=== PATIENT | male | born 1970 | race Caucasian/White ===

== ENCOUNTER 2016-10-22 11:41 | Emergency (ER) | payer BC ==
[2016-10-22 11:46] VITALS: BP 139/94
--- NOTE | 2016-10-22 12:26 | UC ---
Skin Complaint HPI - HPI Summary HPI Summary: Sustained 7 or 8 insects stings after stepping on a nest, thinks they were ground wasps. Most of them on ankles and legs, a couple on his arms. The worst stings are on the ankles, getting more red, warm, and itchy through the day. Has hx of severe large local reaction in his LUE that needed steroids to help with swelling and pain. - History of Current Complaint Chief Complaint: UCAllergicReaction Time Seen by Provider: 10/22/16 12:12 Stated Complaint: WASP STINGS Hx Obtained From: Patient Onset/Duration: Sudden Onset Skin Exposure Onset/Duration: Days Ago Timing: Constant Onset Severity: Mild Current Severity: Moderate Location: Discrete Character: Swelling, Pruritus, Pain, Redness Aggravating: Touch Alleviating: Antihistamines Associated Signs & Symptoms: Negative: Weakness, Pallor, Shivering, Fever, Wheezing, Drainage, Red Streaks Related History: Insect Bite/Sting - Allergy/Home Medications Allergies/Adverse Reactions: Allergies Allergy/AdvReac Type Severity Reaction Status Date / Time No Known Allergies Allergy Verified 08/06/15 10:47 Review of Systems Constitutional: Negative Skin: Other - many red areas on legs, arms Eyes: Negative ENT: Negative Respiratory: Negative Cardiovascular: Negative Gastrointestinal: Negative Genitourinary: Negative Motor: Negative Neurovascular: Negative Musculoskeletal: Negative Neurological: Negative Psychological: Negative All Other Systems Reviewed And Are Negative: Yes PMH/Surg Hx/FS Hx/Imm Hx Previously Healthy: Yes - Surgical History Surgical History: Yes Surgery Procedure, Year, and Place: shoulder repair - Family History Known Family History: Positive: Other - NONCONTRIBUTORY - Social History Alcohol Use: None Substance Use Type: None Smoking Status (MU): Never Smoked Tobacco Have You Smoked in the Last Year: No Physical Exam Triage Information Reviewed: Yes Appearance: Well-Appearing, No Pain Distress, Well-Nourished Vital Signs: Initial Vital Signs Temp 97.8 F 10/22/16 11:43 Pulse 64 10/22/16 11:43 Resp 20 10/22/16 11:43 BP 139/94 10/22/16 11:43 Pulse Ox 99 10/22/16 11:43 Vital Signs Reviewed: Yes Eye Exam: Normal Eyes: Positive: Conjunctiva Clear ENT Exam: Normal ENT: Positive: Normal ENT inspection, Hearing grossly normal, Pharynx normal, TMs normal Dental Exam: Normal Neck exam: Normal Respiratory Exam: Normal Respiratory: Positive: Chest non-tender, Lungs clear, Normal breath sounds, No respiratory distress, No accessory muscle use Cardiovascular Exam: Normal Cardiovascular: Positive: RRR, No Murmur Musculoskeletal Exam: Normal Neurological Exam: Normal Neurological: Positive: Alert Psychological Exam: Normal Skin Exam: Other - multiple separate 5-10cm raised erythematous wheals on legs/ ankles Course/Dx - Diagnoses Provider Diagnoses: multiple insect stings, local reactions. elevated blood pressure due to discomfort Discharge - Discharge Plan Condition: Stable Disposition: HOME Prescriptions: predniSONE TAB* [Deltasone TAB*] 50 mg PO DAILY #5 tab Patient Education Materials: Insect Bite or Sting (ED) Referrals: Joelle Beckford MD [Primary Care Provider] - Additional Instructions: You can take 25-50mg diphenhydramine up to 4 times per day as needed for symptoms. Come back if you have markedly increasing pain, swelling, redness, or if you suspect a problem. I expect the prednisone to stop your stings from growing and the itching should be much improved within 2 days.
== END 2016-10-22 12:24 | disposition home or self-care (01) ==
LOC: UCEAST 11:41
DX: T63.461A Toxic effect of venom of wasps, accidental (unintentional), initial encounter (principal); Y92.9 Unspecified place or not applicable; R03.0 Elevated blood-pressure reading, without diagnosis of hypertension
CPT/HCPCS: 99212; G0463

== ENCOUNTER 2017-10-17 14:14 | Emergency (ER) | payer BC ==
[2017-10-17] MEDS ORDERED: EPINEPHRINE 1 MG/ML 1 ML VIAL ONE (14:17)
[2017-10-17] MEDS ORDERED: methylPREDNISolone 125 MG* 2 ML VIAL ONE (14:23)
[2017-10-17] MEDS ORDERED: Famotidine IV* 10 MG/ML 2 ML (20 mg) ONE (14:23)
[2017-10-17] MEDS ORDERED: diPHENhydraMINE IV* 50 MG/ML 1 ml VIAL (BENADRYL) ONE (14:23)
[2017-10-17] MEDS ORDERED: Ondansetron INJ* 2 MG/ML VIAL ONE (14:33)
[2017-10-17] MEDS ORDERED: Ondansetron INJ* 2 MG/ML VIAL IV ONE (14:55)
[2017-10-17] MEDS ORDERED: NS 0.9% 1000 ML*IV.FLUID IV ONE (14:55)
--- NOTE | 2017-10-17 16:53 | ED ---
Nini Burns Gabriel, scribed for Higinio Zavaleta MD on 10/17/17 at 1428 . Allergic Reaction/Systemic - HPI Summary HPI Summary: This patient is a 47 year old M presenting to [facility] accompanied by his s/p wasp sting that occurred 30 minutes [employer] in his backyard. The patient was rushed In from triage after he passed out in the lobby. The pt states he was stung by a yellow jacket on his face and has had adverse reactions to wasp stings in the past. He took 25mg of Benadryl after the bite. Patient reports dizziness, nausea, ringing in his ears, hives, and diffuse redness. Patient denies tongue swelling, trouble swallowing, vomiting, CP, and incontinence. - History of Current Complaint Chief Complaint: EDAllergicReaction Hx Obtained From: Patient, Family/Parachute Folder - Onset/Duration: Sudden Onset, Started minutes ago - 30 Timing: Constant, Lasting Minutes Severity Initially: Moderate Severity Currently: Severe Pain Intensity: 0 Pain Scale Used: 0-10 Numeric Location: Diffuse Character: Hives Associated Signs And Symptoms: Positive: Nausea. Negative: Throat Tightening, Vomiting - Allergies/Home Medications Allergies/Adverse Reactions: Allergies Allergy/AdvReac Type Severity Reaction Status Date / Time Yellow Jacket bug Allergy Severe Anaphylatic Uncoded 10/17/17 15:14 Shock PMH/Surg Hx/FS Hx/Imm Hx Endocrine/Hematology History: Denies: Hx Diabetes, Hx Thyroid Disease Cardiovascular History: Denies: Hx Hypertension Respiratory History: Denies: Hx Asthma, Hx Chronic Obstructive Pulmonary Disease (COPD) GI History: Denies: Hx Ulcer Neurological History: Denies: Hx CVA, Hx Dementia - Surgical History Surgery Procedure, Year, and Place: shoulder repair Infectious Disease History: Denies: Hx Clostridium Difficile, Hx Hepatitis, Hx Human Immunodeficiency Virus (HIV), Hx of Known/Suspected MRSA, Hx Shingles, Hx Tuberculosis, Hx Known/ Suspected VRE, Hx Known/Suspected VRSA, History Other Infectious Disease - Family History Known Family History: Positive: Other - NONCONTRIBUTORY - Social History Lives: With Family Alcohol Use: None Substance Use Type: Reports: None Smoking Status (MU): Never Smoked Tobacco Have You Smoked in the Last Year: No Review of Systems ENT: Negative - tongue swelling and trouble swallowing , Other - ringing in the ears Negative: Chest Pain Gastrointestinal: Negative - incontinence. Positive: Nausea. Negative: Vomiting Genitourinary: Negative - incontinence. Positive: Other - hives and redness Neurological: Other - dizziness All Other Systems Reviewed And Are Negative: Yes Physical Exam - Summary Physical Exam Summary: Appearance: pale, diaphoretic, moderate to severe distress Skin: diffuse hives Head/face: no swelling of the lips or tongue Eyes: EOMI, LUCAS ENT: normal Neck: supple, non-tender Respiratory: CTA, breath sounds present, no wheezes Cardiovascular: RRR, pulses symmetrical Abdomen: non-tender, soft Bowel Sounds: present Musculoskeletal: generalized weakness Neuro: normal, sensory motor intact, A&Ox3 Triage Information Reviewed: Yes Vital Signs On Initial Exam: Initial Vitals Pulse Resp Pulse Ox 67 14 96 10/17/17 14:22 10/17/17 14:22 10/17/17 14:22 Vital Signs Reviewed: Yes Diagnostics - Vital Signs Vital Signs Pulse Resp Pulse Ox 10/17/17 14:22 67 14 96 - Laboratory Lab Statement: Any lab studies that have been ordered have been reviewed, and results considered in the medical decision making process. - EKG 1423 Cardiac Rate: NL EKG Rhythm: Sinus Rhythm - at [address] Segment: Normal EKG Interpretation: nml axis and nml intervals Re-Evaluation - Re-Evaluation First Eval Re-Evaluation Time: 14:58 Change: Improved Comment: The patient's sx are improving and he is feeling better. Allergic Reaction Course/Dx - Course Course Of Treatment: Patient presents after a bee sting in significant distress with pallor, hives and low blood pressure. Brought back immediately after syncopal episode in triage. Received epinephrine, steroids, Pepcid and Benadryl along with IV fluids immediately. His symptoms resolved quickly and he was feeling much better. He was observed in the ER for 2 hours time. He was experiencing no further symptoms. He was up and walking and tolerating oral fluids well. His discharged with prescriptions for steroids, EpiPen's, Pepcid. He'll follow up closely his primary care physician and likely give referred to allergy. - Diagnoses Provider Diagnoses: Anaphylactic shock, Syncope, Bee sting - Critical Care Time Critical Care Time: 30-74 min - CCT is EXCLUSIVE of separately billable procedures. Discharge - Sign-Out/Discharge Documenting (check all that apply): Discharge/Admit/Transfer - Discharge Plan Condition: Improved Disposition: HOME Prescriptions: EPINEPHrine [Epipen 2-Amando] 0.3 mg IM ONCE PRN #2 box PRN Reason: for severe allergy symptoms Famotidine TAB* [Pepcid 20 MG TAB*] 20 mg PO BID #10 tab predniSONE TAB* [Deltasone TAB*] 50 mg PO DAILY #4 tab Patient Education Materials: Anaphylaxis (ED) Referrals: Joelle Beckford MD [Primary Care Provider] - Additional Instructions: Call first thing in the morning to follow-up with her doctor. Drink plenty of fluids tonight.*Prednisone tonight. Always carry the EpiPen with you for severe allergy symptoms. Return if worse, new symptoms or other concerns. - Billing Disposition and Condition Condition: IMPROVED Disposition: Home The documentation as recorded by the Nini robison Gabriel accurately reflects the service I personally performed and the decisions made by me, Higinio Zavaleta MD.
[2017-10-17 18:06] VITALS: BP 120/80
== END 2017-10-17 16:40 | disposition home or self-care (01) ==
LOC: ED 14:14
DX: T63.461A Toxic effect of venom of wasps, accidental (unintentional), initial encounter (principal); T78.2XXA Anaphylactic shock, unspecified, initial encounter; R55 Syncope and collapse; Y92.096 Garden or yard of other non-institutional residence as the place of occurrence of the external cause
CPT/HCPCS: 93005; 96374; 99284; J1200; J2405; J2930